=== PATIENT | male | born 1975 | race Caucasian/White ===

== ENCOUNTER 2019-06-29 20:00 | Outpatient (CLI) | payer MEDICARE, MEDICAID, SELFPAY | END 2019-06-29 20:01 | disposition home or self-care (01) | LOC: SLEEP 06-30 10:08 | PROVIDERS: Visit Provider Nurse Practitioner Family | DX: G47.33 Obstructive sleep apnea (adult) (pediatric) (principal) | CPT/HCPCS: 95810; 95811 ==

== ENCOUNTER 2020-02-08 14:41 | Outpatient (CLI) | payer MEDICARE, MEDICAID, SELFPAY ==
--- NOTE | 2020-02-08 14:48 | MR_ITS ---
WS: [id number] MRI LEFT KNEE NONCONTRAST TECHNIQUE: Axial PD, coronal PD fat sat, coronal PD, sagittal PD, and sagittal PD fat-sat images obta ined. CLINICAL INFORMATION: LT KNEE PAIN;DECREASED MOBILITY COMPARISON: None. FINDINGS: Distal quadriceps and patella tendons are intact. Hypertrophic patella. Mucoid degeneration involving the anterior cruciate ligament. 4 mm tiny cyst or focal fluid along the anterior tibial ACL insertio n.Small joint effusion. Small to moderate suprapatellar effusion. Posterior cruciate ligament appears intact. Chronic thinning of the medial and lateral meniscus. Intrasubstance signal abnormality invol ving the medial and lateral meniscus has a chronic appearance. No acute appearing meniscal tears. Moderate chondromalacia patella. No subchondral edema. Medial and lateral patellar retinacula appear intact. Edema along the superficial and deep fibers of the MCL consistent with grade 1-2 injury. MCL appears grossly intact. Normal lateral collateral ligament. Normal popliteus. Small ganglion cysts [place] the fibular head. Cluster of cysts measures 16 x 6 mm. Moderate chondromalacia involving the medi al and lateral joint compartments. Small amount of edema in the medial femoral condyle and tibial jennifer teau due to degenerative narrowing. Mild hypertrophic changes along the joint line. MR/MR knee LT wo con* [id number] IMPRESSION: 1. Mucoid degeneration involving the anterior cruciate ligament which appears grossly intact. 4 mm tiny cyst or fluid along the anterior tibial ACL insertion . 2. Small joint effusion and mild to moderate suprapatellar effusion. 3. Chronic thinning of the medial and lateral meniscus with intrasubstance sig nal abnormality. No acute appearing meniscal tears. 4. Grade 1-2 injury involving the medial collateral ligament which is grossly intact. 5. Small cluster of ganglion cysts along the fibular head measuring 16 x 6 mm. 6. Moderate chondromalacia patella. No subchondral edema.
== END 2020-02-08 14:42 | disposition home or self-care (01) ==
PROVIDERS: PCP Nurse Practitioner Family; Visit Provider Nurse Practitioner Family
DX: M25.562 Pain in left knee (principal); Z74.09 Other reduced mobility; M25.462 Effusion, left knee; M67.462 Ganglion, left knee; M22.42 Chondromalacia patellae, left knee
CPT/HCPCS: 73721

== ENCOUNTER 2022-01-26 11:39 | Emergency (ER) | payer MEDICARE, MEDICAID, SELFPAY ==
[2022-01-26 11:44] VITALS: BP 151/102; PULSE 101; RESP 18; TEMP 36.8; O2SAT 95; BMI 44.9
--- NOTE | 2022-01-26 11:54 | ED_ITS ---
HPI - General Adult General: Chief complaint: General Medical Stated complaint: Body aches, N/V, Chills Time Seen by Provider: 01/26/22 11:54 History of Present Illness: Mr. Morel is a 46-year-old gentleman with history of hypertension and sleep apnea who presents to the emergency department due to generalized illness. Onset of symptoms was approximately 4 days ago initially with body aches and headaches associated with nausea and vomiting. He feels dehydrated. He is also subjective fevers and chills with generalized weakness and dark urine. Intensity symptoms is moderate. Course has worsened. Unsure of COVID exposures. No other specific changes in health, exacerbating, or alleviating factors identified. Onset (ago): day(s) Severity: moderate Associated symptoms: Reports cough, decreased appetite, fevers/chills, malaise, nausea and weakness Review of Systems General: Reports: 10 or more systems reviewed and unremarkable except in HPI and below Const: Reports: malaise GI: Reports: nausea PFSH ED PFSH: Medical History Hypertension Surgical History History of arthroplasty of right knee History of laminectomy Social History Smoking and tobacco status: never smoked Second hand smoke exposure: No Alcohol intake: never Physical Exam Const: COMMON NORMALS: alert GENERAL APPEARANCE: cooperative, well developed and ill appearing (Mildly) HENMT: COMMON NORMALS: normocephalic and atraumatic HEAD & SCALP: normocephalic and atraumatic Eye: COMMON NORMALS: conjunctivae normal CONJUNCTIVA: Yes conjunctivae normal SCLERA: sclerae normal Neck/C-Spine: COMMON NORMALS: supple GENERAL: Yes trachea midline Resp: COMMON NORMALS: clear to auscultation bilaterally EFFORT & INSPECTION: Yes able to speak in complete sentences AUSCULTATION: clear to auscultation bilaterally Cardio: COMMON NORMALS: regular rhythm RATE: tachycardic RHYTHM: regular rhythm GI: COMMON NORMALS: Soft to palpation PALPATION: Yes Soft to palpation and No Tenderness to palpation present (GI) Extremity: GENERAL: Yes normal exam except as noted and No edema Neuro: COMMON NORMALS: moves all extremities SENSORIUM/ORIENTATION: Yes alert and No Orientation impaired Psych: COMMON NORMALS: mental status grossly normal and Normal thought process present THOUGHT PROCESS: Normal thought process present Course Vital Signs: Vital signs: Vital Signs Temperature 98.3 F 01/26/22 11:44 Pulse Rate 103 H 01/26/22 14:50 Respiratory Rate 18 01/26/22 14:50 Blood Pressure 134/86 01/26/22 14:50 Pulse Oximetry 95 01/26/22 14:50 Oxygen Delivery Me thod 01/26/22 11:44 [facility] - General Adult Medical Decision Making 46-year-old gentleman with generalized medical complaints. EKG shows sinus tachycardia with nonspecific ST segment abnormalities, no STEMI. Mild dehydration on laboratory studies. No UTI. Chest x-ray with no lobar consolidation or pneumothorax. Patient is COVID-positive which likely explain symptoms. Patient improved with medications and is not requiring oxygen, he is nontoxic in appearance. Discussed paxlovid which the patient wishes to proceed with. Satisfactory for outpatient management. Medical Records I reviewed the patient's medical records. Lab Data I reviewed the patient's lab results. : 01/26/22 12:33 01/26/22 12:33 Radiology Impressions Chest X-Ray 01/26/22 12:03 IMPRESSION: No acute findings. Laboratory Results WBC 4.2 10^3/uL (4.0-10.0) 01/26/22 12:33 RBC 5.33 10^6/uL (4.1-5.3) H 01/26/22 12:33 Hgb 17.4 g/dL (11.7-16.6) H 01/26/22 12:33 Hct 49.1 % (42.0-52.0) 01/26/22 12:33 MCV 92.1 fl (80-94) 01/26/22 12:33 MCH 32.6 pg (28.0-34.0) 01/26/22 12:33 MCHC 35.4 g/dL (30.0-36.0) 01/26/22 12:33 RDW 12.1 % (12.1-15.1) 01/26/22 12:33 Plt Count 262 10^3/cmm (130-400) 01/26/22 12:33 MPV 9.7 fL (7.4-10.4) 01/26/22 12:33 Neut % (Auto) 39.6 % 01/26/22 12:33 Lymph % (Auto) 43.6 % 01/26/22 12:33 [place] % (Auto) 15.8 % 01/26/22 12:33 Eos % (Auto) 0.0 % 01/26/22 12:33 Baso % (Auto) 0.5 % 01/26/22 12:33 Neut # (Auto) 1.68 10^3/uL (1.8-7.7) L 01/26/22 12:33 Lymph # (Auto) 1.9 10^3/uL (0.8-4.8) 01/26/22 12:33 [place] # (Auto) 0.7 10^3/uL (0.2-0.9) 01/26/22 12:33 Eos # (Auto) 0.0 10^3/uL (0.0-0.8) 01/26/22 12:33 Baso # (Auto) 0.0 10^3/uL (0.0-0.1) 01/26/22 12:33 Nucleated RBC % (auto) 0 % 01/26/22 12:33 Nucleated RBCs # 0.0 /100WBC 01/26/22 12:33 Sodium 136 mmol/L (136-145) 01/26/22 12:33 Potassium 3.6 mmol/L (3.5-5.1) 01/26/22 12:33 Chloride 95 mmol/L (98-107) L 01/26/22 12:33 Carbon Dioxide 28 mmol/L (22-29) 01/26/22 12:33 Anion Gap 16.6 (5-19) 01/26/22 12:33 BUN 23 mg/dL (6-20) H 01/26/22 12:33 Creatinine 1.3 mg/dL (0.7-1.2) H 01/26/22 12:33 GFR Calculation 59.2 mL/min (90-130) L 01/26/22 12:33 Glucose 140 mg/dL (65-115) H 01/26/22 12:33 Calculated Osmolality 288 mOsm/kg (285-295) 01/26/22 12:33 Calcium 9.6 mg/dL (8.5-10.5) 01/26/22 12:33 Total Bilirubin 0.6 mg/dL (0.15-1.2) 01/26/22 12:33 AST 48 U/L (0-40) H 01/26/22 12:33 ALT 69 U/L (0-41) H 01/26/22 12:33 Alkaline Phosphatase 77 U/L (40-130) 01/26/22 12:33 Total Protein 8.0 g/dL (6.6-8.7) 01/26/22 12:33 Albumin 4.5 g/dL (3.5-5.2) 01/26/22 12:33 Globulin 3.5 g/dL (1.3-4.6) 01/26/22 12:33 TSH 4.86 uIU/mL (0.27-4.20) H 01/26/22 12:33 Free T4 1.53 ng/dL (0.82-1.77) 01/26/22 12:33 Urine Color [place] (Yellow) 01/26/22 13:59 Urine Appearance Clear (CLEAR) 01/26/22 13:59 Urine pH 6 (5-7) 01/26/22 13:59 Ur Specific [place] 1.020 (1.005-1.030) 01/26/22 13:59 Urine Protein 3+ (Negative) H 01/26/22 13:59 Urine Glucose (UA) Norm (Normal) 01/26/22 13:59 Urine Ketones 1+ (Negative) H 01/26/22 13:59 Urine Blood 2+ (Negative) H 01/26/22 13:59 Urine Nitrate Negative (Negative) 01/26/22 13:59 Urine Bilirubin 1+ (Negative) H 01/26/22 13:59 Urine Urobilinogen 4 mg/dL (Negative) H 01/26/22 13:59 Ur Leukocyte Esterase Negative (Negative) 01/26/22 13:59 Urine RBC 0-4 /hpf (0-2) H 01/26/22 13:59 Urine WBC None /hpf (0-5) 01/26/22 13:59 Ur Squamous Epith Cells 0-4 /hpf (0-5) H 01/26/22 13:59 Amorphous Sediment Not Reportable 01/26/22 13:59 Urine Bacteria None /hpf (NONE) 01/26/22 13:59 Urine Mucus 3+ /hpf 01/26/22 13:59 SARS-CoV-2 Ag (Rapid) Positive (Negative) H 01/26/22 12:33 Discharge Plan Discharge Patient Disposition: Home Clinical Impression: COVID-19, Dehydration, Elevated liver transaminase level, Hematuria Condition: Stable Prescriptions: New ondansetron 4 mg tablet,disintegrating 4 mg PO Q8H PRN (Reason: nausea and vomiting) Qty: 15 0RF No Action naproxen [Naprosyn] 500 mg tablet 500 mg PO BID Qty: 60 0RF Flomax 0.4 mg capsule 0.4 mg PO BID Qty: 30 0RF Discharge Orders: Discharge ED (Routine); Ordered 01/26/22 Ordered By: Nitesh Lee Referrals: Светлана Wei APN [Primary Care Provider] - Patient Instructions: Dehydration (ED), Hematuria (ED), COVID-19 (Coronavirus Disease 2019) (ED) Activity Restrictions/Additional Instructions: Thank you for visiting the emergency department. You were seen and evaluated for generalized symptoms. The most likely cause of the symptoms is COVID-19 which has resulted in dehydration. I will prescribe Paxlovid as discussed as well as antinausea medication. There is a potential interaction between tamsulosin which can be given for lower urinary symptoms and paxlovid. I recommend waiting until you have completed the paxlovid to start the tamsulosin. I do recommend further evaluation by your primary care provider. Please establish with a primary care provider if you do not have 1. I recommend repeat laboratory studies in 2 weeks including urinalysis and liver and kidney functions to ensure that these have improved. Please return to the emergency department for worsening symptoms including sign ificantly worse shortness of breath, inability to tolerate oral intake, or anything else that you are concerned about a feel needs emergency department evaluation. Coding Level of Care Code ED Builder Operator for Neris Grimes Exam Comprehensive
--- NOTE | 2022-01-26 12:03 | XRR_ITS ---
PROCEDURE INFORMATION: Exam: XR Chest Exam date and time: 01/26/2022 12:15 PM Age: 46 years old Clinical indication: Cough and fever; Additional info: Cough, fever TECHNIQUE: Imaging protocol: Radiologic exam of the chest. Views: 1 view. COMPARISON: CR XR chest 2V* [id number] 11/30/2015 1:59 PM FINDINGS: Lungs: Unremarkable. No consolidation. Pleural spaces: Unremarkable. No pleural effusion. No pneumothorax. Heart/Mediastinum: Unremarkable. No cardiomegaly. Bones/joints: Unremarkable. XR/XR chest 1V portable [id number] IMPRESSION: No acute findings.
--- NOTE | 2022-01-26 12:06 | PC.NURSE ---
pt c/o RAMOS, congestion, subjective fevers, hot/cold chills, cough, and N/V for last 4 days. reports cough is resolved. denies known sick contacts. respirations even and unlabored. speech clear. speaking in complete sentences without difficulty. lung sounds clear bilat.
--- NOTE | 2022-01-26 12:13 | ECG_ITS ---
[facility] Test Date: 2022-01-26 Pat Name: Ken Morel Department: Room: Gender: Male Patient Advocate: : 1975 Requested By: Nitesh Lee Order Number: [id number] Gonzales MD: Josy Lawton M.D. Measurements Intervals [place] Rate: 106 P: 62 ID: 160 QRS: 9 QRSD: 100 T: 115 QT: 326 QTc: 435 Interpretive Statements SINUS TACHYCARDIA MODERATE T-WAVE ABNORMALITY, CONSIDER LATERAL ISCHEMIA [-0.1+ mV T-WAVE IN I/aVL/V5/V6] Compared to ECG 11/30/2015 13:55:09 T-wave abnormality now present Possible ischemia now present Sinus bradycardia no longer present Electronically Signed On 01-26-2022 18:12:01 CDT by Josy Lawton M.D. [id number]
[2022-01-26] MEDS: lactated ringers 1,000 ML 999 ML IV (12:26)
[2022-01-26] MEDS: ondansetron 2 mg/ML SDV 2 mL 4 MG IVP (12:27)
[2022-01-26] MEDS: ketorolac 30 mg/mL INJ 15 MG IVP (12:31)
[2022-01-26 12:45] LABS: Basophils % 0.5 %; Hematocrit 49.1 % (42.0-52.0); Hemoglobin 17.4 g/dL (11.7-16.6); Lymphocytes # 1.9 10^3/uL (0.8-4.8); Lymphocytes % 43.6 %; Mean Corpuscular HGB Conc 35.4 g/dL (30.0-36.0); Mean Corpuscular Hemoglobin 32.6 pg (28.0-34.0); Mean Corpuscular Volume 92.1 fl (80-94); Mean Platelet Volume 9.7 fL (7.4-10.4); Monocytes # 0.7 10^3/uL (0.2-0.9); Monocytes % 15.8 %; Neutrophils # 1.68 10^3/uL (1.8-7.7); Neutrophils % 39.6 %; Nucleated Red Blood Cells % 0 %; Platelet Count 262 10^3/cmm (130-400); Red Blood Count 5.33 10^6/uL (4.1-5.3); Red Cell Distribution Width 12.1 % (12.1-15.1); White Blood Count 4.2 10^3/uL (4.0-10.0)
[2022-01-26 13:00] VITALS: BP 138/105; PULSE 101; O2SAT 97
[2022-01-26 13:05] LABS: SARS Covid-2 Antigen Positive (Negative)
[2022-01-26 13:20] LABS: Alanine Aminotransferase 69 U/L (0-41); Albumin Level 4.5 g/dL (3.5-5.2); Alkaline Phosphatase 77 U/L (40-130); Anion Gap 16.6 (5-19); Aspartate Amino Transferase 48 U/L (0-40); Blood Urea Nitrogen 23 mg/dL (6-20); Calcium 9.6 mg/dL (8.5-10.5); Carbon Dioxide 28 mmol/L (22-29); Chloride 95 mmol/L (98-107); Globulin 3.5 g/dL (1.3-4.6); Glomerular Filtration Rate 59.2 mL/min (90-130); Glucose 140 mg/dL (65-115); Osmolality Calculated 288 mOsm/kg (285-295); Potassium 3.6 mmol/L (3.5-5.1); Sodium 136 mmol/L (136-145); Thyroid Stimulating Hormone 4.86 uIU/mL (0.27-4.20); Total Bilirubin 0.6 mg/dL (0.15-1.2)
[2022-01-26 13:30] VITALS: BP 125/96; PULSE 101; O2SAT 95
[2022-01-26 14:08] LABS: Protein Urine 3+ (Negative); Urine Appearance Clear (CLEAR); Urine Color Amber (Yellow); pH Urine 6 (5-7)
[2022-01-26 14:08] LABS: Free T4 Free Thyroxine 1.53 ng/dL (0.82-1.77)
[2022-01-26 14:09] LABS: Add Urine Microscopic? YES; Bilirubin Urine 1+ (Negative); Blood Urine 2+ (Negative); Glucose Urine UA Norm (Normal); Ketones Urine 1+ (Negative); Leukocyte Esterase Urine Negative (Negative); Nitrate Urine Negative (Negative); Urobilinogen Urine 4 mg/dL (Negative)
[2022-01-26 14:18] LABS: Mucus Urine 3+ /hpf; RBC Urine 0-4 /hpf (0-2); Squamous Epithelial Cell Urine 0-4 /hpf (0-5)
[2022-01-26 14:19] LABS: Add Urine Culture? No
[2022-01-26 14:30] VITALS: BP 146/87; PULSE 105; O2SAT 96
[2022-01-26 14:50] VITALS: BP 134/86; PULSE 103; RESP 18; O2SAT 95
== END 2022-01-26 14:51 | disposition home or self-care (01) ==
PROVIDERS: Emergency Provider Emergency Medicine; PCP Nurse Practitioner Family
DX: U07.1 COVID-19 (principal); E86.0 Dehydration; R31.9 Hematuria, unspecified; R74.01 Elevation of levels of liver transaminase levels; I10 Essential (primary) hypertension
CPT/HCPCS: 71045; 80053; 81001; 84439; 84443; 85025; 87426; 93005; 96361; 96374; 96375; 99285; J1885; J2405

== ENCOUNTER 2022-01-28 10:13 | Emergency (ER) | payer MEDICARE, MEDICAID, SELFPAY ==
[2022-01-28] VITALS (17 sets, daily range): BP systolic 158–171; BP diastolic 102–125; PULSE 78–102; RESP 16–20; TEMP 36.8; O2SAT 94–98; BMI 44.9
--- NOTE | 2022-01-28 11:00 | W.ED.COVID ---
HPI - COVID General: Chief Complaint: COVID symptoms Stated Complaint: Covid +, blood in urine Time Seen by Provider: 01/28/22 10:36 Source: patient Mode of arrival: ambulatory History of Present Illness: 46-year-old male presents to the emergency room complaining of frequency of urination. He is having frequent painless urination at night and small volumes. He was diagnosed with COVID on 924 2 days ago his breathing has been fine not really even running a fever anymore he does get a little tachycardia at times and is mildly hypertensive and is again today. No vomiting no diarrhea no anosmia some mild myalgias. No flank pain he denies dysuria urgency. No hematuria. He already is on tamsulosin. He was given Paxlovid when he was seen 2 days ago. MD complaint: known COVID positive Prior covid testing: yes, results known Prior testing date: 01/26/22 COVID 19 common symptoms: positive cough, non-productive cough and body aches; negative fever(s), chills, fatigue, throat pain, nasal congestion, nausea, vomiting or diarrhea COVID 19 other sytmptoms: negative chest pain or requiring oxygen Onset (ago): day(s) (6) Severity: mild Treatment prior to arrival: antiviral therapy COVID Results: SARS-CoV-2 Antigen (Rapid) Positive (Negative) H 01/26/22 12:33 Review of Systems Const: Reports: body aches; Denies: fever(s), chills, change in appetite, fatigue or malaise ENMT: Denies: throat pain, ear or mastoid pain, nasal discharge or nasal congestion Card: Denies: chest pain, edema, dyspnea on exertion or orthopnea Resp: Reports: non-productive cough GI: Denies: abdominal pain, nausea, vomiting, hematemesis, coffee ground emesis, diarrhea, constipation, bloating, hematochezia or melena : Reports: difficulty urinating, urinary frequency, urinary hesitancy, urinary dribbling and difficulty starting urination; Denies: flank pain, dysuria or urinary urgency Skin/Breast: Denies: rash or pruritus PFSH ED PFSH: Medical History Hypertension Surgical History History of arthroplasty of right knee History of laminectomy Social History Smoking and tobacco status: never smoked Second hand smoke exposure: No Alcohol intake: never Physical Exam Const: GENERAL APPEARANCE: cooperative and comfortable ORIENTATION/CONSCIOUSNESS: Yes awake, Yes oriented to person, Yes oriented to place and Yes oriented to time HENMT: COMMON NORMALS: normocephalic, atraumatic and hearing grossly normal bilaterally HEAD & SCALP: normocephalic and atraumatic Resp: COMMON NORMALS: normal respiratory effort, No retractions, No use of accessory muscles and clear to auscultation bilaterally AUSCULTATION: clear to auscultation bilaterally Cardio: COMMON NORMALS: regular rate, regular rhythm and No murmurs present (Cardio) RATE: regular rate RHYTHM: regular rhythm GI: COMMON NORMALS: Soft to palpation and No hepatosplenomegaly present AUSCULTATION: Yes normoactive bowel sounds PALPATION: Yes Soft to palpation, No Tenderness to palpation present (GI), No Guarding due to palpation present (GI) and Yes No hepatosplenomegaly present Extremity: COMMON NORMALS: normal to inspection, capillary refill normal, no clubbing, cyanosis or edema, no calf tenderness and no pedal edema Neuro: SENSORIUM/ORIENTATION: Yes oriented to person, Yes oriented to place and Yes oriented to time Skin: COMMON NORMALS: no rashes or lesions noted GENERAL SKIN EXAM: no rashes or lesions noted Course Vital Signs: Vital signs: Vital Signs Temperature 98.3 F 01/28/22 10:29 Pulse Rate 78 01/28/22 11:44 Respiratory Rate 16 01/28/22 11:44 Blood Pressure 158/102 01/28/22 11:44 Pulse Oximetry 96 01/28/22 11:44 Oxygen Delivery Me thod 01/28/22 10:44 MDM - COVID Medical Decision Making He has not been taking the tamsulosin because of his interaction with Paxlovid. At this point he is waking up multiple times at night to go to the bathroom. Is likely better served taking tamsulosin in the Paxlovid advised that he stop the Paxlovid start tamsulosin 2 p.o. nightly. Recheck with his primary care doctor within the next 2 weeks. Return to the emergency room if he has increasing shortness of breath. Medical Records I reviewed the patient's medical records. Lab Data I reviewed the patient's lab results. Laboratory Results Urine Color Yellow (Yellow) 01/28/22 11:02 Urine Appearance Clear (CLEAR) 01/28/22 11:02 Urine pH 7 (5-7) 01/28/22 11:02 Ur Specific [place] 1.005 (1.005-1.030) 01/28/22 11:02 Urine Protein 2+ (Negative) H 01/28/22 11:02 Urine Glucose (UA) Norm (Normal) 01/28/22 11:02 Urine Ketones 1+ (Negative) H 01/28/22 11:02 Urine Blood 2+ (Negative) H 01/28/22 11:02 Urine Nitrate Negative (Negative) 01/28/22 11:02 Urine Bilirubin Neg (Negative) 01/28/22 11:02 Urine Urobilinogen 4 mg/dL (Negative) H 01/28/22 11:02 Ur Leukocyte Esterase Negative (Negative) 01/28/22 11:02 Urine RBC 0-4 /hpf (0-2) H 01/28/22 11:02 Urine WBC 5-10 /hpf (0-5) H 01/28/22 11:02 Ur Squamous Epith Cells 5-10 /hpf (0-5) H 01/28/22 11:02 Amorphous Sediment Not Reportable 01/28/22 11:02 Urine Bacteria 1+ /hpf (NONE) H 01/28/22 11:02 SARS-CoV-2 Antigen (Rapid) Positive (Negative) H 01/26/22 12:33 Discharge Plan Discharge Patient Disposition: Home Clinical Impression: Benign prostatic hyperplasia Condition: Stable Prescriptions: Changed Flomax 0.4 mg capsule 0.4 mg PO BID Qty: 30 0RF Discontinued Paxlovid (EUA) 150 mg x 2- 100 mg tablet See Rx Instructions .ROUTE .COMPLEX Qty: 30 0RF Rx Instructions: orally per package directions No Action naproxen [Naprosyn] 500 mg tablet 500 mg PO BID Qty: 60 0RF ondansetron 4 mg tablet,disintegrating 4 mg PO Q8H PRN (Reason: nausea and vomiting) Qty: 15 0RF Discharge Orders: Discharge ED (Routine); Ordered 01/28/22 Ordered By: Keegan Hernandez Referrals: Светлана Wei APN [Primary Care Provider] - Discharge Diet: Usual diet Discharge Activity: Resume usual activity Patient Instructions: Opioid Safety, Pain Management Activity Restrictions/Additional Instructions: Stop Paxlovid increase tamsulosin to 1 tablet twice daily. Coding Level of Care Code ED Hydraulic Lift Operator for Chg Fwd Exam Detailed
[2022-01-28 11:20] LABS: Glucose Urine UA Norm (Normal); Protein Urine 2+ (Negative); Specific Gravity, Urine 1.005 (1.005-1.030); Urine Appearance Clear (CLEAR); Urine Color Yellow (Yellow); pH Urine 7 (5-7)
[2022-01-28 11:21] LABS: Add Urine Culture? No; Add Urine Microscopic? YES; Bacteria Urine 1+ /hpf; Bilirubin Urine Neg (Negative); Blood Urine 2+ (Negative); Ketones Urine 1+ (Negative); Leukocyte Esterase Urine Negative (Negative); Nitrate Urine Negative (Negative); RBC Urine 0-4 /hpf (0-2); Urobilinogen Urine 4 mg/dL (Negative)
== END 2022-01-28 11:46 | disposition home or self-care (01) ==
PROVIDERS: Physician Assistant; Emergency Provider Family Medicine; PCP Nurse Practitioner Family
DX: N40.1 Benign prostatic hyperplasia with lower urinary tract symptoms (principal); R31.9 Hematuria, unspecified; R35.0 Frequency of micturition; N39.43 Post-void dribbling; R39.11 Hesitancy of micturition; U07.1 COVID-19; I10 Essential (primary) hypertension
CPT/HCPCS: 81001; 99283